=== PATIENT | female | born 1985 | race Caucasian/White ===

== ENCOUNTER → 2023-08-28 | Outpatient (CLI) | payer OTHER ==
[2023-09-03 11:41] LABS: HPV GENOTYPE 16 Not Detected; HPV GENOTYPE 18 Not Detected; HPV HIGH RISK Not Detected; HPV SOURCE Cervical
== END ==
LOC: LAB SHORT 14:00 → LAB 14:00
PROVIDERS: Physician Assistant
DX: Z01.419 Encounter for gynecological examination (general) (routine) without abnormal findings (principal)
CPT/HCPCS: 87624; G0123

== ENCOUNTER → 2024-09-01 | Outpatient (CLI) | payer OTHER | LOC: LAB SHORT 19:08 → LAB 19:08 | DX: N39.0 Urinary tract infection, site not specified (principal) | CPT/HCPCS: 87077; 87086; 87186 ==

== ENCOUNTER → 2025-03-30 | Outpatient (CLI) | payer OTHER | LOC: LAB SHORT 09:31 → LAB 09:31 | DX: R31.9 Hematuria, unspecified (principal) | CPT/HCPCS: 87086 ==